=== PATIENT | female | born 1975 | race Caucasian/White ===

== ENCOUNTER 2017-04-20 10:32 | Inpatient (IN) | payer BC, OTHER ==
[2017-04-20] VITALS (7 sets, daily range): BP systolic 122–131; BP diastolic 73–97; PULSE 84–94; RESP 15–22; TEMP 98.7; Ht 165.1 cm; Wt 72.0 kg
[~2017-04-20] VITALS: Ht 165.1 cm; Wt 72.0 kg
[~2017-04-20 10:32] MED LIST: ONDA4TAB8 PO
--- NOTE | 2017-04-20 10:50 | ERD ---
ER Documentation Chief Complaint Chief Complaint intentional overdose took prozac 10 tabs about 1 hour ago HPI 41-year-old female history of chronic alcohol abuse ambulatory to the ED complaining of recent increasing feelings of hopelessness and suicidal ideations. Denies visual or auditory hallucinations. Approximately an hour and a half prior to arrival she took 10 Prozac capsules and a suicidal attempt. Mild nausea but no abdominal pain, nausea, vomiting or diarrhea. No chest pain, shortness of breath or palpitations. No headache, visual changes, focal weakness or numbness. No fevers or chills. ROS All systems reviewed and are negative except as per history of present illness. Medications Home Meds Reported Medications Bupropion Hcl* (Wellbutrin XL*) 150 Mg Tab.sr.24h, 150 MG PO DAILY, TAB.SA 04/20/17 Escitalopram Oxalate* (Lexapro*) 20 Mg Tablet, 20 MG PO DAILY, #30 TAB 04/20/17 Discontinued Scripts Ondansetron Hcl* (Zofran*) 4 Mg Tablet, 4 MG PO Q6H for NAUSEA AND/OR VOMITING, #20 TAB Prov:ARMANDO CANNON PA-C 11/23/15 Allergies Allergies: Coded Allergies: No Known Allergy (Unverified , 04/20/17) PMhx/Soc Reviewed in chart. As per HPI. History of Surgery: No Anesthesia Reaction: No Hx Neurological Disorder: No Hx Respiratory Disorders: No Hx Psychiatric Problems: Yes (depression; alcohol abuse) Hx Miscellaneous Medical Probl: Yes (anemia) Hx Alcohol Use: Yes (drunk alcohol last night) Hx Substance Use: No Hx Tobacco Use: No FmHx No family psychiatric history Physical Exam Vitals Vital Signs Date Time Temp Pulse Resp B/P Pulse Ox O2 Delivery O2 Flow Rate FiO2 04/20/17 13:30 98.3 89 20 121/89 99 Room Air 04/20/17 10:35 99.3 110 20 135/86 97 Physical Exam Const: Alert, anxious, moderate distress Head: Atraumatic Eyes: Normal Conjunctiva. No nystagmus ENT: Normal External Ears, Nose and Mouth. Neck: Full range of motion. Non-tender Resp: Clear to auscultation bilaterally Cardio: Regular rate and rhythm, no murmurs Abd: Soft, non tender, non distended. Normal bowel sounds Skin: No petechiae or rashes Back: No midline or flank tenderness Ext: No cyanosis, or edema Neur: Awake and alert. No focal deficit observed. Psych: Cooperative, anxious and depressed. No hallucinations or delusions. Result Diagram: 04/20/17 1100 04/20/17 1100 Results 24 hrs Laboratory Tests Test 04/20/17 11:00 White Blood Count 11.910^3/ul Red Blood Count 4.0110^6/ul Hemoglobin 12.6g/dl Hematocrit 36.0% Mean Corpuscular Volume 89.8fl Mean Corpuscular Hemoglobin 31.4pg Mean Corpuscular Hemoglobin Concent 35.0g/dl Red Cell Distribution Width 13.6% Platelet Count 47747^3/UL Mean Platelet Volume 8.3fl Neutrophils % 77.3% Lymphocytes % 15.8% Monocytes % 5.9% Eosinophils % 0.1% Basophils % 0.3% Nucleated Red Blood Cells % 0.0/100WBC Neutrophils # 9.210^3/ul Lymphocytes # 1.910^3/ul Monocytes # 0.710^3/ul Eosinophils # 0.010^3/ul Basophils # 0.010^3/ul Nucleated Red Blood Cells # 0.010^3/ul Sodium Level 140mmol/L Potassium Level 3.3mmol/L Chloride Level 98mmol/L Carbon Dioxide Level 28mmol/L Anion Gap 17 Blood Urea Nitrogen 12mg/dl Creatinine 0.78mg/dl Glucose Level 70mg/dl Calcium Level 8.4mg/dl Magnesium Level 2.0mg/dl Total Bilirubin 0.9mg/dl Direct Bilirubin 0.00mg/dl Indirect Bilirubin 0.9mg/dl Aspartate Amino Transf (AST/SGOT) 46IU/L Alanine Aminotransferase (ALT/SGPT) 55IU/L Alkaline Phosphatase 109IU/L Total Protein 7.0g/dl Albumin 4.1g/dl Globulin 2.90g/dl Albumin/Globulin Ratio 1.41 Salicylates Level < 1.0mg/dl Acetaminophen Level < 10.0ug/ml Ethyl Alcohol Level 171.0mg/dl Current Medications Medications (Trade) Dose Ordered Sig/Aury Route PRN Reason Start Time Stop Time Status Last Admin Dose Admin Sodium Chloride (NS) 1,000 ml @ 1,000 mls/hr Q1H STAT IV 04/20/17 10:56 04/20/17 11:55 DC 04/20/17 11:20 Potassium Chloride (Potassium Chloride Pwd/Soln) 40 meq ONCE ONCE PO 04/20/17 12:00 04/20/17 12:01 DC 04/20/17 12:05 Thiamine HCl (Vitamin B1) 100 mg ONCE ONCE PO 04/20/17 13:00 04/20/17 13:01 DC 04/20/17 13:18 Folic Acid 1 mg 1 mg ONCE ONCE PO 04/20/17 13:00 04/20/17 13:01 DC 04/20/17 13:18 Magnesium Sulfate/ Dextrose (Magnesium Sulfate 1 Gm/D5W) 100 ml @ 100 mls/hr ONCE ONCE IVPB 04/20/17 13:00 04/20/17 13:59 DC 04/20/17 13:18 Calcium Chloride (Ca Chloride 10% Syg) 1,000 mg ONCE ONCE IV 04/20/17 13:30 04/20/17 13:31 DC 04/20/17 13:30 Lorazepam (Ativan) 1 mg ONCE ONCE IV 04/20/17 14:00 04/20/17 14:01 DC 04/20/17 14:04 IV Flush (NS 3 ml) 3 ml PER PROTOCOL IV 04/20/17 14:30 Enoxaparin Sodium (Lovenox) 40 mg DAILY SC 04/21/17 09:00 Lorazepam (Ativan) 4 mg ONCE STAT IV 04/20/17 14:53 04/20/17 15:01 DC 04/20/17 15:05 Chlordiazepoxide (Librium) 50 mg Q4H PO 04/20/17 15:30 04/20/17 15:19 Lorazepam (Ativan) 2 mg Q6H PRN IV agitation or withdrawal 04/20/17 15:30 Thiamine HCl (Vitamin B1) 500 mg BID PO 04/20/17 21:00 Folic Acid (Folic Acid) 1 mg DAILY PO 04/21/17 09:00 LABS: Mild hypokalemia, Blood alcohol level 171 mg/dL EKG: Time: 10: 57. Sinus rhythm. Ventricular rate 88. Normal CO and QRS. QTC is prolonged at [address]-T wave changes. No ectopy. EP interpretation: Abnormal ECG. EKG: Time: 12:26. Sinus rhythm. Ventricular rate 96. Normal CO and QRS. QTC prolonged at 523 ms. No ectopy. EP interpretation: Abnormal ECG. Procedures/MDM DOCUMENTS REVIEWED: ED nurse, prior ED. MEDICAL DECISION MAKIN-year-old female, history of chronic alcohol abuse ambulatory to the ED complaining of recent increasing feelings of hopelessness and suicidal ideations after taking 10 Prozac capsules approximately 90 minutes prior to arrival. Poison control consulted. Tele-psychiatry Dr. Barrera recommends 5150 hold. Patient with significant QTc prolongation greater than 500 ms which has increased from 513 to 523. Patient may have taken more pills than she admits. She has significant risk for ventricular ectopy and torsades. Magnesium, potassium and calcium optimized. Admit to the ICU for observation with a sitter pending normalization of the QT interval and medical clearance for transfer to a behavioral health facility. Counseled patient regarding diagnosis, diagnostic results and plan for admission. CRITICAL CARE TIME: Due to the high probability of sudden clinically significant hemodynamic, cardiovascular and psychiatric deterioration, this patient with fluoxetine overdose, prolonged QTc, suicidal ideations, chronic alcohol abuse and impending withdrawal required multiple, frequent reevaluations of vital signs and response to therapy. Additional critical care time was spent in interpretation of relevant clinical data, consultation with poison control and arranging for admission and ongoing. TOTAL CRITICAL CARE TIME: 45 minutes not including other separately reportable procedures. CALLS/CONSULTS: Time: 12:37, Dr. Barrera, Recommends 5150. CALLS/CONSULTS: Time: 13:20, Dr. Akbar Coombs. Admit to Dr Dunn. PATIENT CARE TRANSITIONED: Time: 13:35, Dr. Dunn. Departure Diagnosis: Primary Impression: Suicide attempt by substance overdose Encounter type: initial encounter Qualified Code: T65.92XA - Suicide attempt by substance overdose, initial encounter Additional Impressions: Prolonged Q-T interval on ECG Major depression Major depression recurrence: single episode Active/Remission status: currently active Major depression episode severity: severe Psychotic features : without psychotic features Qualified Code: F32.2 - Current severe episode of major depressive disorder without psychotic features without prior episode Chronic alcohol abuse Alcohol withdrawal Complication of substance-induced condition: with unspecified complication Qualified Code: F10.239 - Alcohol withdrawal syndrome with complication Condition: Critical REI FRASER MD Apr 20, 2017 10:50
[2017-04-20] MEDS ORDERED: SOD CHLORIDE 0.9% 1,000 ML IV STA (10:56)
[2017-04-20 11:05] LABS: BASOPHILS % 0.3 % (0.0-2.0); EOSINOPHILS % 0.1 % (0.0-7.0); HEMOGLOBIN 12.6 g/dl (12.0-16.0); LYMPHOCYTES # 1.9 10^3/ul (0.8-2.9); LYMPHOCYTES % 15.8 % (15.0-51.0); MEAN CORPUSCULAR HEMOGLOBIN 31.4 pg (29.0-33.0); MEAN CORPUSCULAR VOLUME 89.8 fl (82.0-101.0); MEAN PLATELET VOLUME 8.3 fl (7.4-10.4); MONOCYTE # 0.7 10^3/ul (0.3-0.9); MONOCYTES % 5.9 % (0.0-11.0); NEUTROPHIL # 9.2 10^3/ul (1.6-7.5); NEUTROPHILS % 77.3 % (39.0-77.0); PLATELET COUNT 275 10^3/UL (140-415); RED BLOOD COUNT 4.01 10^6/ul (4.20-5.40); RED CELL DISTRIBUTION WIDTH 13.6 % (11.5-14.5); WHITE BLOOD COUNT 11.9 10^3/ul (4.8-10.8)
[2017-04-20 11:24] LABS: ALANINE AMINOTRANSFERASE 55 IU/L (13-69); ALBUMIN 4.1 g/dl (3.3-4.9); ALBUMIN/GLOBULIN RATIO 1.41; ALKALINE PHOSPHATASE 109 IU/L (42-121); ANION GAP 17 (8-16); ASPARTATE AMINO TRANSFERASE 46 IU/L (15-46); BILIRUBIN,INDIRECT 0.9 mg/dl (0-1.1); BILIRUBIN,TOTAL 0.9 mg/dl (0.2-1.3); BLOOD UREA NITROGEN 12 mg/dl (7-20); CALCIUM 8.4 mg/dl (8.4-10.2); CARBON DIOXIDE 28 mmol/L (21-31); CHLORIDE 98 mmol/L (97-110); CREATININE 0.78 mg/dl (0.44-1.00); GLUCOSE 70 mg/dl (70-220); POTASSIUM 3.3 mmol/L (3.5-5.1); SODIUM 140 mmol/L (135-144)
[2017-04-20 11:39] LABS: ACETAMINOPHEN < 10.0 ug/ml (10.0-30.0); SALICYLATE < 1.0 mg/dl (5.0-30.0)
[2017-04-20] MEDS ORDERED: POTASSIUM CHLORIDE 20 MEQ POWDER FOR ORAL SOLN PO ONE (12:00)
--- NOTE | 2017-04-20 12:37 | PSY ---
Date/Time of Note Date/Time of Note DATE: 04/20/17 TIME: 15:34 Psychiatric Subjective Eval Consent Pt consented to telemedicine: Yes Subjective Evaluation Patient location: emergency Chief Complaint: intentional overdose took prozac 10 tabs about 1 hour ago History of present illness HPI: 41 yo female with ho MDD and etoh dep, fired from job for arriving to job drunk, today took overdose of prozac in an attempt to kill self, while drunk. She told her godmother who told her to go to ER. Pt clearly admits she was trying to kill self. Reports no si now and wants to go home. Denies other drug use or psychosis. Past Psych: denies past suicide or admits, not in treatment with a psychiatrist PMHx: denies All: denies MSE: cooperative, organized, reports had low mood, no delusions no avh denies si /hi now, poor insight/judgment/impulse control Imp: 41 yo female with MDD, etoh dep, s/p suicide attempt 5150 psych admit utox etoh w/d precautions daily thiamine 100mg po folate 1mg mvi Medical history Problems Medical Problems: (1) Alcohol abuse Status: Acute (2) Suicide attempt by substance overdose Status: Acute (3) Vomiting Status: Acute Allergies: Coded Allergies: No Known Allergy (Unverified , 11/23/15) Psychiatric Objective Eval Mental Status Examination: Laboratory Results Laboratory Tests Test 04/20/17 11:00 White Blood Count 11.910^3/ul Red Blood Count 4.0110^6/ul Hemoglobin 12.6g/dl Hematocrit 36.0% Mean Corpuscular Volume 89.8fl Mean Corpuscular Hemoglobin 31.4pg Mean Corpuscular Hemoglobin Concent 35.0g/dl Red Cell Distribution Width 13.6% Platelet Count 77763^3/UL Mean Platelet Volume 8.3fl Neutrophils % 77.3% Lymphocytes % 15.8% Monocytes % 5.9% Eosinophils % 0.1% Basophils % 0.3% Nucleated Red Blood Cells % 0.0/100WBC Neutrophils # 9.210^3/ul Lymphocytes # 1.910^3/ul Monocytes # 0.710^3/ul Eosinophils # 0.010^3/ul Basophils # 0.010^3/ul Nucleated Red Blood Cells # 0.010^3/ul Sodium Level 140mmol/L Potassium Level 3.3mmol/L Chloride Level 98mmol/L Carbon Dioxide Level 28mmol/L Anion Gap 17 Blood Urea Nitrogen 12mg/dl Creatinine 0.78mg/dl Glucose Level 70mg/dl Calcium Level 8.4mg/dl Magnesium Level 2.0mg/dl Total Bilirubin 0.9mg/dl Direct Bilirubin 0.00mg/dl Indirect Bilirubin 0.9mg/dl Aspartate Amino Transf (AST/SGOT) 46IU/L Alanine Aminotransferase (ALT/SGPT) 55IU/L Alkaline Phosphatase 109IU/L Total Protein 7.0g/dl Albumin 4.1g/dl Globulin 2.90g/dl Albumin/Globulin Ratio 1.41 Salicylates Level < 1.0mg/dl Acetaminophen Level < 10.0ug/ml Ethyl Alcohol Level 171.0mg/dl SHELDON PERERA Apr 20, 2017 12:37
[2017-04-20] MEDS ORDERED: THIAMINE 100 MG TAB PO ONE (13:00)
[2017-04-20] MEDS ORDERED: MAGNESIUM SULFATE 1 GM/D5W 100 ML IVPB ONE (13:00)
[2017-04-20] MEDS ORDERED: FOLIC ACID 1 MG TAB PO ONE (13:00)
[2017-04-20] MEDS ORDERED: CA CHLORIDE 10% 10 ML SYRINGE IV ONE (13:30)
[2017-04-20] MEDS ORDERED: LORAZEPAM 2 MG INJ IV ONE ×2 (14:00→16:30)
[2017-04-20] MEDS ORDERED: NACL 0.9% 3 ML SYG IV SCH (14:30)
[2017-04-20] MEDS ORDERED: BUPR-75 PO (14:43)
[2017-04-20] MEDS ORDERED: ESCI20TA PO (14:43)
[2017-04-20] MEDS ORDERED: LORAZEPAM 2 MG INJ IV STA (14:53)
--- NOTE | 2017-04-20 15:15 | HP ---
Date/Time of Note Date/Time of Note DATE: 04/20/17 TIME: 15:07 Assessment/Plan VTE Prophylaxis VTE Prophylaxis Intervention: LMWH Assessment/Plan Chief Complaint/Hosp Course 41 yo female with h/o etoh use disorder presenting with alcohol withdrawal syndrome as well as intentional SSRI overdose causing mildly prolonged QTc SSRI overdose causing QTc ~515: - QTc mildly prolonged, will resolve - Monitor on telemetry Depression with suicide attempt: - 5150 hold per telepysch - Transfer to inpatient psych facility when stabilized Alcohol withdrawal syndrome, alcohol use disorder: - Marked withdrawal despite high serum etoh level, clear benzo resistance. Give 4 ativan stat, start PO librium 50 q4h taper, uptitrate with PRN benzos as needed - Thiamine, folate, MVI supplementation 1:1 sitter ICU for monitoring Problems: HPI/ROS Admit Date/Time Admit Date/Time Hx of Present Illness 41 yo female with h/o alcohol use disorder, depression who presents after apparent suicide attempt Patient is in marked alcohol withdrawal at the time of my evaluation and my history is therefore somewhat limited Patient states she has been drinking heavily for years. Previous rehab stays. Last day of sobriety was 1.5 years ago she says Today took whole bottle of prozac in reported suicide attempt. Her mother forced her to go to the ED Here, telepsych recommended 5150 EKG with mildly prolong QTc Patient is very agitated and tremulous now, uanble to provide coherent histroy PMH/Family/Social Social History Alcohol Use: heavy Smoking Status: Never smoker Drug Use: other Exam/Review of Systems Vital Signs Vitals Vital Signs Date Time Temp Pulse Resp B/P Pulse Ox O2 Delivery O2 Flow Rate FiO2 04/20/17 13:30 98.3 89 20 121/89 99 Room Air Exam Exam Very activated, agitated, tremulous Wide eyed Tachy, regular Breathing comfortably Hands tremulous Further exam deferred Labs Result Diagram: 04/20/17 1100 04/20/17 1100 Medications Medications Current Medications Enoxaparin Sodium (Lovenox) 40 mg DAILY SC ; Start 04/21/17 at 09:00 JAYESH MILLER MD Apr 20, 2017 15:15
[2017-04-20] MEDS: CHLORDIAZEPOXIDE 25 MG CAP PO SCH ×3 (15:19→22:08)
[2017-04-20] MEDS ORDERED: LORAZEPAM 2 MG INJ IV PRN ×2 (15:30→18:30)
[2017-04-20 17:10] LABS: ADD UMIC NO; UR ASCORBIC ACID NEGATIVE (NEGATIVE); UR BILIRUBIN (Dip) NEGATIVE (NEGATIVE); UR BLOOD (Dip) NEGATIVE (NEGATIVE); UR CLARITY CLEAR (CLEAR); UR COLOR YELLOW (YELLOW); UR GLUCOSE (Dip) NEGATIVE (NEGATIVE); UR KETONES (Dip) 1+ mg/dL (NEGATIVE); UR LEUKOCYTE ESTERASE (Dip) NEGATIVE Leu/ul (NEGATIVE); UR NITRITE (Dip) NEGATIVE (NEGATIVE); UR SPECIFIC GRAVITY (Dip) 1.023 (1.003-1.030); UR TOTAL PROTEIN (Dip) NEGATIVE (NEGATIVE); UR UROBILINOGEN (Dip) 1+ mg/dL (NEGATIVE)
[2017-04-20 17:22] LABS: BENZODIAZEPINES Negative (NEGATIVE)
[2017-04-20 17:23] LABS: BARBITURATES Negative (NEGATIVE); CANNABINOIDS Negative (NEGATIVE); COCAINE Negative (NEGATIVE); OPIATES Negative (NEGATIVE)
[2017-04-20] MEDS ORDERED: DIAZEPAM 5 MG/ML SYG IV STA (17:39)
[2017-04-20] MEDS ORDERED: DIAZEPAM 5 MG/ML SYG IV ONE (18:00)
[2017-04-20] MEDS ORDERED: DIAZEPAM 5 MG TAB PO SCH ×2 (18:30)
[2017-04-20] MEDS: LORAZEPAM 2 MG INJ IV PRN (18:57)
[2017-04-20] MEDS ORDERED: DIAZEPAM 5 MG TAB PO PRN (20:00)
[2017-04-20 21:18] LABS: CALCIUM 8.6 mg/dl (8.4-10.2); CREATININE 0.65 mg/dl (0.44-1.00); POTASSIUM 3.5 mmol/L (3.5-5.1)
[2017-04-20] MEDS: THIAMINE 100 MG TAB PO SCH (22:07)
[2017-04-21] VITALS (30 sets, daily range): BP systolic 66–147; BP diastolic 42–103; PULSE 73–96; RESP 12–24
[2017-04-21] MEDS: LORAZEPAM 2 MG INJ IV PRN (01:55)
[2017-04-21] MEDS: CHLORDIAZEPOXIDE 25 MG CAP PO SCH ×5 (03:14→20:35)
[2017-04-21 06:50] LABS: BASOPHILS % 0.2 % (0.0-2.0); EOSINOPHILS # 0.1 10^3/ul (0.0-0.5); EOSINOPHILS % 0.8 % (0.0-7.0); HEMATOCRIT 30.5 % (37.0-47.0); HEMOGLOBIN 10.4 g/dl (12.0-16.0); LYMPHOCYTES # 0.9 10^3/ul (0.8-2.9); LYMPHOCYTES % 14.6 % (15.0-51.0); MEAN CORPUSCULAR HEMOGLOBIN 31.3 pg (29.0-33.0); MEAN CORPUSCULAR HGB CONC 34.1 g/dl (32.0-37.0); MEAN CORPUSCULAR VOLUME 91.9 fl (82.0-101.0); MEAN PLATELET VOLUME 8.8 fl (7.4-10.4); MONOCYTE # 0.5 10^3/ul (0.3-0.9); MONOCYTES % 7.6 % (0.0-11.0); NEUTROPHIL # 4.5 10^3/ul (1.6-7.5); NEUTROPHILS % 75.5 % (39.0-77.0); PLATELET COUNT 159 10^3/UL (140-415); RED BLOOD COUNT 3.32 10^6/ul (4.20-5.40)
[2017-04-21 07:13] LABS: ALBUMIN 3.1 g/dl (3.3-4.9); ALBUMIN/GLOBULIN RATIO 1.24; CALCIUM 8.4 mg/dl (8.4-10.2); CREATININE 0.72 mg/dl (0.44-1.00); POTASSIUM 3.3 mmol/L (3.5-5.1); TOTAL PROTEIN 5.6 g/dl (6.1-8.1)
[2017-04-21] MEDS ORDERED: POTASSIUM CHLORIDE 250 ML IVPB ONE (09:30)
[2017-04-21] MEDS: FOLIC ACID 1 MG TAB PO SCH (10:16)
[2017-04-21] MEDS: THIAMINE 100 MG TAB PO SCH ×2 (10:16→20:35)
[2017-04-21] MEDS: ENOXAPARIN 40 MG/0.4 ML SYG SC SCH (10:24)
[2017-04-21] MEDS ORDERED: POTASSIUM CHLORIDE (SR) 20 MEQ TAB PO STA (10:38)
--- NOTE | 2017-04-21 14:23 | PN ---
Date/Time of Note Date/Time of Note DATE: 04/21/17 TIME: 14:20 Assessment/Plan VTE Prophylaxis VTE Prophylaxis Intervention: LMWH Lines/Catheters IV C[facility]ter Type [facility]from [facility] Saline Lock Assessment/Plan Chief Complaint/Hosp Course 1. SSRI overdose secondary to depression with suicide attempt causing QTc ~515: - QTc mildly prolonged- resolved -Downgrade - 5150 hold per telepysch, continue one-to-one sitter - Transfer to inpatient psych facility when stabilized -PET team eval 2. Alcohol withdrawal syndrome, alcohol use disorder: - Marked withdrawal despite high serum etoh level, clear benzo resistance - Thiamine, folate, MVI supplementation Prophylaxis: Lovenox Problems: Subjective 24 Hr Interval Summary Constitutional: no complaints Exam/Review of Systems Vital Signs Vitals Vital Signs Date Time Temp Pulse Resp B/P Pulse Ox O2 Delivery O2 Flow Rate FiO2 04/21/17 12:00 82 04/21/17 12:00 98.1 15 147/103 98 Room Air Intake and Output 04/20/17 04/20/17 04/21/17 15:00 23:00 07:00 Intake Total 120 ml 240 ml Output Total 150 ml 350 ml Balance -30 ml -110 ml Exam Constitutional: alert, oriented Respiratory: clear to auscultation Cardiovascular: regular rate and rhythm Gastrointestinal: soft, No distended Musculoskeletal: nl extremities to inspection Results Result Diagram: 04/21/17 0602 04/21/17 0602 Results 24 hrs Laboratory Tests Test 04/20/17 16:56 04/20/17 20:19 04/21/17 06:02 Urine Color YELLOW Urine Clarity CLEAR Urine pH 5.0 Urine Specific [place] 1.023 Urine Ketones 1+ H Urine Nitrite NEGATIVE Urine Bilirubin NEGATIVE Urine Urobilinogen 1+ H Urine Leukocyte Esterase NEGATIVE Urine Hemoglobin NEGATIVE Urine Glucose NEGATIVE Urine Total Protein NEGATIVE Urine Opiates Screen Negative Urine Barbiturates Negative Urine Amphetamines Screen Negative Urine Benzodiazepines Screen Negative Urine Cocaine Screen Negative Urine Cannabinoids Negative Sodium Level 135 137 Potassium Level 3.5 3.3 L Chloride Level 101 102 Carbon Dioxide Level 27 28 Anion Gap 11 10 Blood Urea Nitrogen 12 14 Creatinine 0.65 0.72 Glucose Level 96 99 Calcium Level 8.6 8.4 Magnesium Level 2.0 2.1 White Blood Count 6.0 # Red Blood Count 3.32 L Hemoglobin 10.4 L Hematocrit 30.5 L Mean Corpuscular Volume 91.9 Mean Corpuscular Hemoglobin 31.3 Mean Corpuscular Hemoglobin Concent 34.1 Red Cell Distribution Width 14.0 Platelet Count 159 # Mean Platelet Volume 8.8 Neutrophils % 75.5 Lymphocytes % 14.6 L Monocytes % 7.6 Eosinophils % 0.8 Basophils % 0.2 Nucleated Red Blood Cells % 0.0 Neutrophils # 4.5 Lymphocytes # 0.9 Monocytes # 0.5 Eosinophils # 0.1 Basophils # 0.0 Nucleated Red Blood Cells # 0.0 Total Bilirubin 1.0 Direct Bilirubin 0.00 Indirect Bilirubin 1.0 Aspartate Amino Transf (AST/SGOT) 36 Alanine Aminotransferase (ALT/SGPT) 44 Alkaline Phosphatase 83 Total Protein 5.6 #L Albumin 3.1 #L Globulin 2.50 Albumin/Globulin Ratio 1.24 Medications Medications Current Medications Enoxaparin Sodium (Lovenox) 40 mg DAILY SC Last administered on 04/21/17 10: 24; Admin Dose 40 MG; Start 04/21/17 at 09:00 Chlordiazepoxide (Librium) 50 mg Q4H PO Last administered on 04/21/17 11:29; Admin Dose 50 MG; Start 04/20/17 at 15:30 Thiamine HCl (Vitamin B1) 500 mg BID PO Last administered on 04/21/17 10:16; Admin Dose 500 MG; Start 04/20/17 at 21:00 Folic Acid (Folic Acid) 1 mg DAILY PO Last administered on 04/21/17 10:16; Admin Dose 1 MG; Start 04/21/17 at 09:00 Lorazepam (Ativan) 4 mg Q6H PRN PO AGITATION; Start 04/21/17 at 11:00 ROMARIO RUCKER Apr 21, 2017 14:23
[2017-04-22] VITALS (15 sets, daily range): BP systolic 93–134; BP diastolic 46–95; PULSE 75–93; RESP 12–24
[2017-04-22] MEDS: LORAZEPAM 1 MG TAB PO PRN ×3 (00:58→16:15)
[2017-04-22] MEDS: CHLORDIAZEPOXIDE 25 MG CAP PO SCH ×5 (01:01→15:49)
[2017-04-22 05:02] LABS: BASOPHILS % 0.2 % (0.0-2.0); EOSINOPHILS # 0.1 10^3/ul (0.0-0.5); EOSINOPHILS % 0.9 % (0.0-7.0); HEMATOCRIT 30.6 % (37.0-47.0); HEMOGLOBIN 10.5 g/dl (12.0-16.0); LYMPHOCYTES # 1.5 10^3/ul (0.8-2.9); LYMPHOCYTES % 22.6 % (15.0-51.0); MEAN CORPUSCULAR HEMOGLOBIN 31.5 pg (29.0-33.0); MEAN CORPUSCULAR HGB CONC 34.3 g/dl (32.0-37.0); MEAN CORPUSCULAR VOLUME 91.9 fl (82.0-101.0); MONOCYTE # 0.5 10^3/ul (0.3-0.9); MONOCYTES % 7.6 % (0.0-11.0); NEUTROPHIL # 4.3 10^3/ul (1.6-7.5); NEUTROPHILS % 67.3 % (39.0-77.0); PLATELET COUNT 151 10^3/UL (140-415); RED BLOOD COUNT 3.33 10^6/ul (4.20-5.40); WHITE BLOOD COUNT 6.4 10^3/ul (4.8-10.8)
[2017-04-22 05:25] LABS: CALCIUM 9.1 mg/dl (8.4-10.2); CREATININE 0.77 mg/dl (0.44-1.00); MAGNESIUM 1.9 mg/dl (1.7-2.5); POTASSIUM 3.8 mmol/L (3.5-5.1)
[2017-04-22] MEDS: FOLIC ACID 1 MG TAB PO SCH (08:49)
[2017-04-22] MEDS: THIAMINE 100 MG TAB PO SCH (08:49)
[2017-04-22] MEDS: ENOXAPARIN 40 MG/0.4 ML SYG SC SCH (08:52)
--- NOTE | 2017-04-22 14:54 | PDOCDIS ---
Discharge Instructions CONDITION Patient Condition: Good HOME CARE INSTRUCTIONS: Diet Instructions: Regular ACTIVITY: Activity Restrictions: No Restrictions FOLLOW UP/APPOINTMENTS Follow-up Plan Follow-up with inpatient psych facility ROMARIO RUCKER Apr 22, 2017 14:54
--- NOTE | 2017-04-22 15:05 | DS ---
Date/Time of Note Date/Time of Note DATE: 04/22/17 TIME: 14:55 Discharge Summary Admission/Discharge Info Admit Date/Time Apr 20, 2017 at 14:20 Discharge Date/Time April 22, 2017 Discharge Diagnosis 1. SSRI overdose secondary to depression with suicide attempt causing QTc ~515: - QTc mildly prolonged- resolved - 5150 hold per telepysch -Patient is medically stable for transfer to inpatient psychiatric facility, PET eval done 2. Alcohol withdrawal syndrome, alcohol use disorder: Stable -Status post thiamine, folate, MVI supplementation Patient Condition: Fair Hospital Course Patient is a 41 yo female with h/o alcohol use disorder, depression who presents after apparent suicide attempt after taking a bottle of Prozac. Patient was evaluated by telemetry psych who recommended 5150. Patient was admitted to the ICU and EKG did show mild prolonging of the QT interval which did ultimately resolve. Patient also had signs of alcohol withdrawal was altered on arrival, patient was given thiamine and Librium. Patient did require high doses of benzos. Patient's withdrawal resolved and mentation stabilized. Patient was seen by social worker masters and PET eval was done, patient was felt to be medically stable for transfer to inpatient psychiatric facility. On day of discharge patient had no acute complaints or vitals, labs and physical exam were stable and questions are answered. Home Meds Reported Medications Bupropion Hcl* (Wellbutrin XL*) 150 Mg Tab.sr.24h, 150 MG PO DAILY, TAB.SA 04/20/17 Escitalopram Oxalate* (Lexapro*) 20 Mg Tablet, 20 MG PO DAILY, #30 TAB 04/20/17 Discontinued Scripts Ondansetron Hcl* (Zofran*) 4 Mg Tablet, 4 MG PO Q6H for NAUSEA AND/OR VOMITING, #20 TAB Prov:ARMANDO CANNON PA-C 11/23/15 Follow-up Plan Follow-up with inpatient psych facility Primary Care Provider Not On Staff Doctor Time spent on discharge: > 30 minutes ROMARIO RUCKER Apr 22, 2017 15:05
== END 2017-04-22 16:50 | DRG 918 ==
LOC: E/R 10:32 → ICU 14:20
PROVIDERS: ADMIT Internal Medicine; ATTEND Internal Medicine
DX: T43.222A Poisoning by selective serotonin reuptake inhibitors, intentional self-harm, initial encounter (principal); F10.239 Alcohol dependence with withdrawal, unspecified; Y90.6 Blood alcohol level of 120-199 mg/100 ml; R11.10 Vomiting, unspecified; F32.9 Major depressive disorder, single episode, unspecified
CPT/HCPCS: 36415; 80048; 80053; 80306; 80307; 81003; 83735; 85025; 93005; 96374; 96375; 96376; J1650; J2060; J3475; J3480; J7030